=== PATIENT | female | born 1945 | race Caucasian/White ===

== ENCOUNTER → 2021-01-25 | Outpatient (CLI) | payer OTHER ==
[~2021-01-25] MED LIST: ACCUPRIL40 MG PO; CATAPRES 0.1MG0.1 MG PO; CYCLOBENZAPRINE5 MG PO; DIFLUCAN150 MG PO; IPRAT-ALBUT 0.5-3 ML NEB; LINZESS145 MCG PO; LOPRESSOR50 MG PO; MEDROL DOSEPAK 24 MG PO; OMNICEF 300 MG300 MG PO; QUINAPRIL-HCTZ1 EAC1 PO; SYNTHROID75 MCG PO; TRAMADOL HCL50 MG PO; VENTOLIN HFA 66.7 GM INH; VITAMIN D250000 UNIT PO; ZOCOR40 MG PO
[2021-01-25 12:58] LABS: HEMOGLOBIN 13.1 gm/dl (12.3-15.3); RED BLOOD COUNT 3.96 M/UL (4.00-5.10); WHITE BLOOD COUNT 5.6 K/UL (4.5-11.0)
[2021-01-25 13:18] LABS: BUN/CREATININE RATIO 13 (0-10)
== END ==
LOC: LAB 12:31 → KOH-I 15:00
PROVIDERS: Nurse Practitioner
DX: M25.561 Pain in right knee (principal); M79.604 Pain in right leg; R22.41 Localized swelling, mass and lump, right lower limb
CPT/HCPCS: 36415; 80053; 85025; 85379

== ENCOUNTER 2021-01-26 10:31 | Emergency (ER) | payer OTHER | END 2021-01-26 13:40 | disposition home or self-care (01) | LOC: ER1 10:31 | DX: M25.561 Pain in right knee (principal); M79.89 Other specified soft tissue disorders; I10 Essential (primary) hypertension; Z88.2 Allergy status to sulfonamides; Z79.899 Other long term (current) drug therapy | CPT/HCPCS: 73564; 93971; 99284 ==

== ENCOUNTER → 2021-04-19 | Outpatient (CLI) | payer OTHER | LOC: KOH-I 13:41 | DX: M25.561 Pain in right knee (principal); S83.231A Complex tear of medial meniscus, current injury, right knee, initial encounter; M25.461 Effusion, right knee; M71.21 Synovial cyst of popliteal space [Baker], right knee; M93.261 Osteochondritis dissecans, right knee | CPT/HCPCS: 73721 ==

== ENCOUNTER 2022-06-30 07:48 | Emergency (ER) | payer OTHER ==
[2022-06-30 10:34] LABS: HEMOGLOBIN 12.2 gm/dl (12.3-15.3); RED BLOOD COUNT 3.71 M/UL (4.00-5.10); WHITE BLOOD COUNT 5.8 K/UL (4.5-11.0)
[2022-06-30 10:58] LABS: BUN/CREATININE RATIO 19 (0-10)
== END 2022-06-30 13:41 | disposition home or self-care (01) ==
LOC: ER1 07:48
PROVIDERS: Emergency Medicine
DX: S80.01XA Contusion of right knee, initial encounter (principal); M79.672 Pain in left foot; I10 Essential (primary) hypertension; M06.9 Rheumatoid arthritis, unspecified; Z96.651 Presence of right artificial knee joint; Z88.2 Allergy status to sulfonamides; W19.XXXA Unspecified fall, initial encounter
CPT/HCPCS: 73564; 73610; 73630; 80053; 84550; 85025; 85652; 86140; 96374; 99283; J0360